=== PATIENT | female | born 1995 | race Caucasian/White ===

== ENCOUNTER 2019-07-21 18:27 | Emergency (ER) | payer OTHER ==
[~2019-07-21] VITALS: Ht 170.2 cm; Wt 51.0 kg
[2019-07-21 21:56] VITALS: BP 99/56
== END 2019-07-21 22:00 | disposition home or self-care (01) ==
LOC: ER 18:40
DX: R00.2 Palpitations (principal)
CPT/HCPCS: 36415; 85379; 99283